=== PATIENT | male | born 1965 | race Caucasian/White ===

== ENCOUNTER 2018-03-11 15:44 | Observation (INO) ==
[2018-03-11] MEDS ORDERED: Aspirin 81 MG TAB.CHEW PO ONE (15:57)
[2018-03-11] MEDS: Nitroglycerin 25 MG/250 ML INFUS..BTL IVC SCH (16:11)
[2018-03-11 16:18] LABS: Basophils # 0.1 K/mcL (0.0-0.2); Basophils % 0.6 %; Eosinophils # 0.1 K/mcL (0.0-0.6); Eosinophils % 1.4 %; Hematocrit 46.9 % (37.5-50.1); Hemoglobin 15.8 g/dL (12.9-16.9); Immature Granulocytes % 0.3 % (0-4); Lymphocytes # 1.7 K/mcL (0.6-4.6); Lymphocytes % 16.6 %; Mean Corpuscular HGB Conc 33.7 g/dL (31.6-35.5); Mean Corpuscular Hemoglobin 29.9 pg (28.0-33.3); Mean Corpuscular Volume 88.7 fL (83.0-100.0); Mean Platelet Volume 9.7 fL (9.4-12.4); Monocytes % 9.4 %; Neutrophils # 7.4 K/mcL (1.6-8.9); Platelet Count 297 K/mcL (140-400); Red Blood Count 5.29 M/mcL (4.19-5.50); Red Cell Distribution Width 12.3 % (11.5-14.5); Segmented Neutrophils % 71.7 %
[2018-03-11 16:23] LABS: INR 1.1; Prothrombin Time 11.3 Seconds (9.4-12.1)
[2018-03-11 16:26] LABS: Activated Partial Thrombo Time 30.3 Seconds (26.0-36.0)
[2018-03-11 16:39] LABS: BUN/Creatinine Ratio 13 (6-26); Blood Urea Nitrogen 12 mg/dL (6-20); Calcium 10.2 mg/dL (8.6-10.3); Carbon Dioxide 24 mEq/L (23-29); Chloride 108 mEq/L (98-107); Glucose 91 mg/dL (70-105); Osmolality,Calculated 291 (280-300); Potassium 3.9 mEq/L (3.5-5.1); Sodium 141 mEq/L (136-145); eGFR For African Americans > 60 (> 60); eGFR For Non-African Americans > 60 (> 60)
[2018-03-11 16:40] LABS: Troponin I < 0.03 ng/mL (< 0.04)
--- NOTE | 2018-03-11 17:10 | Emergency Department Note ---
Disposition Clinical Impression: Chest pain Qualifiers: Chest pain type: unspecified Qualified Code(s): R07.9 - Chest pain, unspecified Disposition: Admitted As Inpatient Condition: Good Referrals: Adam Soler MD [Primary Care Provider] - Forms: ED Satisfaction Letter Chest Pain HPI - General Chief Complaint: ED Chest Pain Stated Complaint: chest pain Time Seen by Provider: 03/11/18 15:54 Source: patient Limitations: no limitations Vital Signs Reviewed: Yes Nursing Notes Reviewed: Yes - History of Present Illness HPI Narrative: Patient presents for evaluation of chest pain. Patient's chest pain started last night while he was at a concert. Patient states that he had associated shortness of breath and diaphoresis. Patient's chest pain today happened about an hour prior to arrival. He describes his concrete blocks on his chest. Describes shortness of breath diaphoresis nausea and radiation of pain to the right arm. States this feels like previous [place]. Patient does have a history of a five-vessel bypass. The patient states that he has not been found to have EKG changes on previous MRIs. EKG does not show any acute changes other than T- wave flattening in leads 2 and aVF. The patient is mildly diaphoretic on exam. His blood pressure is mildly elevated. The patient be given aspirin as well as placed on a low-dose nitro drip as he has a history of taking Cialis with last dose this morning. Severity scale (1-10): 0 - Related Data Home Medications Medication Instructions Recorded Confirmed Aspirin 81 mg PO DAILY 04/04/16 03/11/18 Atorvastatin Calcium [Lipitor] 80 mg PO HS 04/04/16 03/11/18 Cholecalciferol (D-3) [Vitamin D] 5,000 unit PO DAILY 04/04/16 03/11/18 Levothyroxine Sodium [Tirosint] 175 mcg PO DAILY 04/04/16 03/11/18 Metoprolol XL (24 HR) Succ [Toprol 75 mg PO DAILY 04/04/16 03/11/18 Xl] Multivitamin [Multivitamins] 1 each PO DAILY 04/04/16 03/11/18 Omeprazole [PriLOSEC] 40 mg PO BID 04/04/16 03/11/18 Vitamin E Acetate [Vitamin E] 2,000 units PO DAILY 04/04/16 03/11/18 Flaxseed Oil [[place]-3 Flaxseed Oil] 1,000 mg PO DAILY 09/12/17 03/11/18 Fluticasone Propionate Nasal 1 spray NS BID 09/12/17 03/11/18 [Flonase] Ubidecarenone [Co Q-10] 10 mg PO DAILY 09/12/17 03/11/18 Allergies Allergy/AdvReac Type Severity Reaction Status Date / Time ibuprofen [From Motrin] Allergy Swelling Verified 11/30/17 10:19 of Lip/Tongue/Throat Review of Systems: CONSTITUTIONAL: No weight loss, fever, chills, weakness or fatigue. HEENT: Eyes: No visual changes. Ears, Nose, Throat: No hearing loss, difficulty talking or unable to swallow. SKIN: No rash or itching. CARDIOVASCULAR: Chest pain with associated diaphoresis and radiation to the right arm. RESPIRATORY: No shortness of breath, cough or sputum. GASTROINTESTINAL: Nausea No anorexia, vomiting or diarrhea. No abdominal pain or blood. GENITOURINARY: No burning on urination or hematuria. NEUROLOGICAL: No headache, dizziness, syncope, paralysis, ataxia, numbness or tingling in the extremities. No change in bowel or bladder control. MUSCULOSKELETAL: No muscle pain, back pain, joint pain or stiffness. Chest Pain PMH - Past Medical History Medical history: Reports: GERD, migraine, myocardial infarction, other Surgical history: Reports: appendectomy, coronary bypass (CABG), herniorrhaphy Psychiatric history: Reports: depression - Social History Smoking Status: Former smoker Alcohol use: Reports: none Drug use: Reports: none Physical Exam General: Diaphoresis; mild distress secondary to pain Head: Normocephalic Atraumatic Eyes: PERRL, EOMI ENT: Airway patent, no stridor Neck: supple, no meningismus Chest: Lungs clear to auscultation bilateral Cardiac: Regular rate and rhythm, no murmurs, rubs or gallops Abdomen: soft, nontender, nondistended; no guarding, rebound, or tenderness to percussion Musculoskeletal: Calves symmetric, nontender, no palpable cord Skin: No rash, normal skin tone Neuro: Alert and Oriented to person, place, and time; No focal deficit, - General Limitations: no limitations General appearance: alert, in no apparent distress Course - Consultations Consultation #1: Discussed with Dr. Goodman. Due to our high concern of ACS and previous significant cardiac history, we discussed the option of starting heparin. At this time the patient does not have dynamic EKG changes and does not have a positive troponin. Heparin can be held until EKG changes or troponin elevated. Vital Signs Temperature 98.2 F 03/11/18 15:49 Pulse Rate 70 03/11/18 15:49 Respiratory Rate 18 03/11/18 15:49 Blood Pressure 152/96 03/11/18 15:49 O2 Sat by Pulse Oximetry 100 03/11/18 15:49 Temperature 98.2 F 03/11/18 15:49 Pulse Rate 70 03/11/18 17:33 Respiratory Rate 16 03/11/18 17:33 Blood Pressure 115/75 03/11/18 17:33 O2 Sat by Pulse Oximetry 100 03/11/18 17:33 Oxygen Delivery Oxygen Delivery Room Air Chest Pain - Medical Records Medical records reviewed: Yes I reviewed the patient's medical records. - Lab Data Lab results reviewed: Yes I reviewed the patient's lab results. Result diagrams: 03/11/18 15:55 03/11/18 15:55 Lab Results 03/11/18 03/11/18 03/11/18 Range/Units 15:55 15:55 15:55 WBC 10.4 (4.3-11.1) K/mcL RBC 5.29 (4.19-5.50) M/mcL Hgb 15.8 (12.9-16.9) g/dL Hct 46.9 (37.5-50.1) % MCV 88.7 (83.0-100.0) fL MCH 29.9 (28.0-33.3) pg MCHC 33.7 (31.6-35.5) g/dL RDW 12.3 (11.5-14.5) % Plt Count 297 (140-400) K/mcL MPV 9.7 (9.4-12.4) fL Immature Gran % 0.3 (0-4) % Seg Neutrophils % 71.7 % Lymphocytes % 16.6 % Monocytes % 9.4 % Eosinophils % 1.4 % Basophils % 0.6 % Neutrophils # 7.4 (1.6-8.9) K/mcL Lymphocytes # 1.7 (0.6-4.6) K/mcL Monocytes # 1.0 (0.0-1.3) K/mcL Eosinophils # 0.1 (0.0-0.6) K/mcL Basophils # 0.1 (0.0-0.2) K/mcL PT 11.3 (9.4-12.1) Seconds INR 1.1 APTT 30.3 (26.0-36.0) Seconds Sodium 141 (136-145) mEq/L Potassium 3.9 (3.5-5.1) mEq/L Chloride 108 H (98-107) mEq/L Carbon Dioxide 24 (23-29) mEq/L BUN 12 (6-20) mg/dL Creatinine 0.91 (0.70-1.30) mg/dL Est GFR ( Amer) > 60 (> 60) Est GFR (Non-Af Amer) > 60 (> 60) BUN/Creatinine Ratio 13 (6-26) Glucose 91 (70-105) mg/dL Calculated Osmolality 291 (280-300) Calcium 10.2 (8.6-10.3) mg/dL Troponin I < 0.03 (< 0.04) ng/mL - Radiology Data Radiology results reviewed: Yes I reviewed the patient's radiology results. - EKG Data EKG attestation: Yes I reviewed and interpreted this EKG. EKG results narrative: EKG shows sinus rhythm with a ventricular rate of 62. VT interval 186. QRS 98. QTC 429. Patient has no skin ST elevations or depressions. Patient does have T-wave flattening in lead 2 and aVF. These changes are different than 12/08. Attestation Statement - Attestation Attestation: I, Blair Jane DO, examined this patient [id number] and my medical decision-making was reviewed with Bacilio Chilel DO, Resident Physician. I agree with the documented findings, disposition and treatment plan as described except to the extent set forth below. Please see my progress notes for details.
--- NOTE | 2018-03-11 17:42 | Emergency Department Note ---
Disposition Clinical Impression: Chest pain Qualifiers: Chest pain type: unspecified Qualified Code(s): R07.9 - Chest pain, unspecified Disposition: Admitted As Inpatient Condition: Good Referrals: Adam Soler MD [Primary Care Provider] - Forms: ED Satisfaction Letter Time of Disposition: 17:42 General Adult HPI - General Chief complaint: ED Chest Pain Stated complaint: chest pain Time Seen by Provider: 03/11/18 15:54 Source: patient Limitations: no limitations - History of Present Illness Pain Scale: 0 - Related Data Home Medications Medication Instructions Recorded Confirmed Aspirin 81 mg PO DAILY 04/04/16 03/11/18 Atorvastatin Calcium [Lipitor] 80 mg PO HS 04/04/16 03/11/18 Cholecalciferol (D-3) [Vitamin D] 5,000 unit PO DAILY 04/04/16 03/11/18 Levothyroxine Sodium [Tirosint] 175 mcg PO DAILY 04/04/16 03/11/18 Metoprolol XL (24 HR) Succ [Toprol 75 mg PO DAILY 04/04/16 03/11/18 Xl] Multivitamin [Multivitamins] 1 each PO DAILY 04/04/16 03/11/18 Omeprazole [PriLOSEC] 40 mg PO BID 04/04/16 03/11/18 Vitamin E Acetate [Vitamin E] 2,000 units PO DAILY 04/04/16 03/11/18 Flaxseed Oil [[place]-3 Flaxseed Oil] 1,000 mg PO DAILY 09/12/17 03/11/18 Fluticasone Propionate Nasal 1 spray NS BID 09/12/17 03/11/18 [Flonase] Ubidecarenone [Co Q-10] 10 mg PO DAILY 09/12/17 03/11/18 Allergies Allergy/AdvReac Type Severity Reaction Status Date / Time ibuprofen [From Motrin] Allergy Swelling Verified 11/30/17 10:19 of Lip/Tongue/Throat Past Medical History - Past Medical History Medical history: Reports: GERD, migraine, myocardial infarction, other Surgical history: Reports: appendectomy, coronary bypass (CABG), herniorrhaphy Psychiatric history: Reports: depression - Social History Smoking Status: Former smoker Smokeless Tobacco Status: Yes Alcohol use: Reports: none Drug use: Reports: none Physical Exam - General Limitations: no limitations General appearance: alert, in no apparent distress Course Vital Signs Temperature 98.2 F 03/11/18 15:49 Pulse Rate 70 03/11/18 15:49 Respiratory Rate 18 03/11/18 15:49 Blood Pressure 152/96 03/11/18 15:49 O2 Sat by Pulse Oximetry 100 03/11/18 15:49 Temperature 98.2 F 03/11/18 15:49 Pulse Rate 70 03/11/18 17:33 Respiratory Rate 16 03/11/18 17:33 Blood Pressure 115/75 03/11/18 17:33 O2 Sat by Pulse Oximetry 100 03/11/18 17:33 Oxygen Delivery Oxygen Delivery Room Air Medical Decision Making - Lab Data Result diagrams: 03/11/18 15:55 03/11/18 15:55 Lab Results 03/11/18 03/11/18 03/11/18 Range/Units 15:55 15:55 15:55 WBC 10.4 (4.3-11.1) K/mcL RBC 5.29 (4.19-5.50) M/mcL Hgb 15.8 (12.9-16.9) g/dL Hct 46.9 (37.5-50.1) % MCV 88.7 (83.0-100.0) fL MCH 29.9 (28.0-33.3) pg MCHC 33.7 (31.6-35.5) g/dL RDW 12.3 (11.5-14.5) % Plt Count 297 (140-400) K/mcL MPV 9.7 (9.4-12.4) fL Immature Gran % 0.3 (0-4) % Seg Neutrophils % 71.7 % Lymphocytes % 16.6 % Monocytes % 9.4 % Eosinophils % 1.4 % Basophils % 0.6 % Neutrophils # 7.4 (1.6-8.9) K/mcL Lymphocytes # 1.7 (0.6-4.6) K/mcL Monocytes # 1.0 (0.0-1.3) K/mcL Eosinophils # 0.1 (0.0-0.6) K/mcL Basophils # 0.1 (0.0-0.2) K/mcL PT 11.3 (9.4-12.1) Seconds INR 1.1 APTT 30.3 (26.0-36.0) Seconds Sodium 141 (136-145) mEq/L Potassium 3.9 (3.5-5.1) mEq/L Chloride 108 H (98-107) mEq/L Carbon Dioxide 24 (23-29) mEq/L BUN 12 (6-20) mg/dL Creatinine 0.91 (0.70-1.30) mg/dL Est GFR ( Amer) > 60 (> 60) Est GFR (Non-Af Amer) > 60 (> 60) BUN/Creatinine Ratio 13 (6-26) Glucose 91 (70-105) mg/dL Calculated Osmolality 291 (280-300) Calcium 10.2 (8.6-10.3) mg/dL Troponin I < 0.03 (< 0.04) ng/mL Critical Care Time Critical Care Time: Yes Total Critical Care Time: 35 Attestation: Critical care performed: Time is exclusive of separately billable procedures. Time includes: direct patient care, patient reassessment, coordination of patient care, interpretation of data (laboratory data, radiology data, and respiratory data), review of patient's medical records, medical consultation and documentation of patient care. Procedures included in critical care time: Procedures excluded from critical care time: Attestation Statement - Attestation Attestation: I, Blair Jane DO, examined this patient [id number] and my medical decision-making was reviewed with Bacilio Chilel DO, Resident Physician. I agree with the documented findings, disposition and treatment plan as described except to the extent set forth below. Please see my progress notes for details. 52-year-old male presents emergency room a chest heaviness and tightness. Patient has a significant cardiac history with a 5 vessel bypass and 3 stents within the last 5 years. Patient said all these procedures performed at this facility. Patient had onset of symptoms last night but is persistently gotten worse today to the point where he has significant chest discomfort and pain. Patient is on Cialis and took his medication this morning. Patient denies any trauma or injury. Denies any shortness of breath fevers chills nausea vomiting or diarrhea. He does not have nitroglycerin at home and does not take any medications when he gets these symptoms. He has not had these symptoms and over 3 years. His last cardiac catheterization cardiac evaluation was greater than 3 years ago. Patient otherwise appears to be in some moderate distress on presentation. He is slightly diaphoretic he does his chest hurts on the left side. He describes as is identical to when he required catheterization stenting within the last 2 years as well. Patient immediately had an EKG which showed sinus rhythm and no acute signs of ST segment elevation or abnormality. He will be started on ACS protocol with nitroglycerin drip to be utilized secondary to the slow titration of the medication elbow symptomatic control with his blood pressure as tolerated. If his blood pressure does not tolerate patient will be provided with pain medication. Patient will most likely require admission to the hospital for definitive management. Disposition to be determined once workup labs with a CBC chemistry correlation studies as well as cardiac consultation are completed. Patient will have some plaque controlled. Disposition determined. Physical exam is otherwise unremarkable. Lungs are clear heart is regular abdomen is soft. Large surgical scar that goes from the subxiphoid region over the abdomen as well as from large sternotomy scar that appears to be stable. Lungs are clear heart is regular. Abdomen is soft nontender nondistended with no guarding no rigidity. Disposition pending the evaluation. Symptomatic control to be completed. 1625 Patient symptoms have been completely resolved with 10 g of nitroglycerin by IV infusion. Cardiology was contacted and they recommended not starting heparin drip at this time considering to repeat EKG showed no acute ST segment changes or abnormality. Vital signs are otherwise stable and unremarkable. Patient will be admitted for definitive management cardiac auscultation. See detailed documentation of the physical exam, medical intervention, medical decision-making and disposition in the resident physician's note. 35 minutes of critical care will be provided the patient secondary to multidisciplinary intervention as well as nitroglycerin drip for angina.
[2018-03-11] MEDS ORDERED: Ondansetron 4 MG/2 ML VIAL IVP PRN (18:06)
[2018-03-11] MEDS ORDERED: Mag Hydrox/Al Hydrox/Simeth 30 ML UDC PO PRN (18:06)
[2018-03-11] MEDS ORDERED: Acetaminophen 325 MG TABLET PO PRN (18:06)
[2018-03-11] MEDS ORDERED: Naloxone 0.4 MG/ML INJ IVP PRN (18:06)
--- NOTE | 2018-03-11 18:23 | Internal Med History&Physical ---
Date of Encounter: 03/11/18 Time of Encounter: 06:00 Internal Medicine - H&P: HPI Chief complaint: cp History of present illness: Mr. Rivas is a 52 year old male Patient presents for evaluation acute onset chest pain started last night while he was at a concert associated shortness of breath and diaphoresis and radiated to the right arm. He has a H/o SC and history of a five-vessel bypass. EKG does not show any acute changes other than T-wave flattening in leads 2 and aVF.leads 2 and aVF. Cardiology was consulted and he was placed on a low-dose nitro drip in the sitting of taking Cialis this morning. Past Med Surg Social Fam HX - Past Medical History Medical history: GERD, migraine, myocardial infarction, other Psychiatric history: depression - Past Surgical History Surgical History: appendectomy, coronary bypass (CABG), herniorrhaphy - Social History Smoking Status: Former smoker Smokeless Tobacco Status: Yes Alcohol use: none Drug use: none - Family History Father Living Status: Still Living Hx Family Cardiac Disorders: Yes (Triple Bipass) Internal Medicine - H&P: Meds Aspirin 81 mg PO DAILY 04/04/16 [History] Atorvastatin Calcium [Lipitor] 80 mg PO HS 04/04/16 [History] Cholecalciferol (D-3) [Vitamin D] 5,000 unit PO DAILY 04/04/16 [History] Levothyroxine Sodium [Tirosint] 175 mcg PO DAILY 04/04/16 [History] Metoprolol XL (24 HR) Succ [Toprol Xl] 75 mg PO DAILY 04/04/16 [History] Multivitamin [Multivitamins] 1 each PO DAILY 04/04/16 [History] Omeprazole [PriLOSEC] 40 mg PO BID 04/04/16 [History] Vitamin E Acetate [Vitamin E] 2,000 units PO DAILY 04/04/16 [History] Flaxseed Oil [[place]-3 Flaxseed Oil] 1,000 mg PO DAILY 09/12/17 [History] Fluticasone Propionate Nasal [Flonase] 1 spray NS BID 09/12/17 [History] Ubidecarenone [Co Q-10] 10 mg PO DAILY 09/12/17 [History] 3 Allergy/AdvReac Type Severity Reaction Status Date / Time ibuprofen [From Motrin] Allergy Swelling Verified 11/30/17 10:19 of Lip/Tongue/Throat All Systems PM: A 10-system review of systems was performed and is negative for pertinent findings except as documented above in the HPI. - Constitutional Constitutional: no chills, no fever(s), no night sweats - Cardiovascular Cardiovascular ROS IM: chest pain, no diaphoresis, no dyspnea, no lightheadedness, no palpitations, no syncope - Respiratory Respiratory: no cough, no dyspnea, no wheezing, no excessive phlegm production - Gastrointestinal Gastrointestinal: no abdominal pain, no diarrhea, no hematemesis, no hematochezia, no melena, no nausea, no vomiting - Musculoskeletal Musculoskeletal ROS IM: no numbness, no tingling - Neurological Neurological ROS: no confusion, no convulsions, no focal weakness, no numbness, no tingling, no tremor(s) - Constitutional Vitals: Temp Pulse Resp BP Pulse Ox 98.2 F 70 18 110/75 100 03/11/18 15:49 03/11/18 17:33 03/11/18 18:12 03/11/18 18:12 03/11/18 17:33 General appearance: Present: A&O X 3 - Head Head exam: Present: atraumatic, normocephalic - Respiratory Respiratory exam: Present: CTAB. Absent: accessory muscle use, rales, rhonchi, wheezes - Cardiovascular Cardiovascular exam: Present: RRR, +S1, +S2. Absent: diastolic murmur, gallop, rubs, systolic murmur - GI/Abdominal GI/Abdominal exam: Present: normal bowel sounds, soft, no peritoneal signs. Absent: distended, tenderness - Extremities Exam Extremities exam: Present: warm, radial pulses palpable and symmetrical. Absent : calf tenderness, cyanotic, pedal edema Internal Med - H&P Results - Labs CBC & Chem 7: 03/11/18 19:06 03/12/18 00:43 - Assessment and plan (1) Chest pain Status: Acute Assessment and plan: Chest pain DD *CAD *Muskuloskeletal CP - myofascial strain, costochondritis *GERD *Esophageal spasm *Cocaine induced *Pericarditis - unlikely *Pneumonia - no infiltrate on CXR PLAN: - Nitro drip as per cardiology - cardiac enzymes x 2 q 8 hr - EKG now and in AM - ASA - O2 by NC to keep SpO2 greater than 92% - UA - CBCD, BMP in AM - Fasting lipids - Tylenol 650 mg PO q 4-6 hr PRN headache - Home meds (check list) - Heparin 5000 U SQ BID - 2D Echo - Cardiology consult Qualifiers: Chest pain type: unspecified Qualified Code(s): R07.9 - Chest pain, unspecified (2) DVT prophylaxis Status: Deleted - Time Spent With Patient Total time spent is greater than 50% in coordination of care (as documented) at patient's floor/unit and/or counseling patient:
[2018-03-11 19:32] LABS: Basophils # 0.1 K/mcL (0.0-0.2); Basophils % 0.5 %; Eosinophils # 0.1 K/mcL (0.0-0.6); Eosinophils % 1.3 %; Hematocrit 42.8 % (37.5-50.1); Hemoglobin 14.9 g/dL (12.9-16.9); Immature Granulocytes % 0.4 % (0-4); Lymphocytes # 1.9 K/mcL (0.6-4.6); Lymphocytes % 17.8 %; Mean Corpuscular HGB Conc 34.8 g/dL (31.6-35.5); Mean Platelet Volume 9.8 fL (9.4-12.4); Monocytes # 0.8 K/mcL (0.0-1.3); Monocytes % 7.5 %; Neutrophils # 7.6 K/mcL (1.6-8.9); Platelet Count 282 K/mcL (140-400); Red Blood Count 4.81 M/mcL (4.19-5.50); Red Cell Distribution Width 12.3 % (11.5-14.5); Segmented Neutrophils % 72.5 %
[2018-03-11] MEDS: Fluticasone Propionate Nasal 50 MCG/SPRAY BOTTLE NS SCH (20:58)
[2018-03-11] MEDS: *HR* Heparin 5,000 UNIT/ML VIAL SQ SCH (23:16)
[2018-03-11 23:19] LABS: Bilirubin,Urine Negative (Negative); Blood,Urine Negative (Negative); Clarity,Urine Clear (Clear); Color,Urine Yellow (Yellow); Glucose,Urine (UA) Normal (Normal); Ketones,Urine Negative (Negative); Leukocyte Esterase,Urine Negative (Negative); Nitrite,Urine Negative (Negative); PH,Urine 6.5 pH Units (5.0-8.0); Protein,Urine Negative (Neg-Trace); Specific Gravity,Urine 1.011 (1.010-1.025); Urobilinogen,Urine Normal (Normal)
[2018-03-12 01:19] LABS: INR 1.1; Prothrombin Time 11.6 Seconds (9.4-12.1)
[2018-03-12 01:22] LABS: Activated Partial Thrombo Time 31.3 Seconds (26.0-36.0)
[2018-03-12 01:33] LABS: Alanine Aminotransferase 18 Units/L (7-52); Albumin 3.8 g/dL (3.5-5.7); Albumin/Globulin Ratio 1.5 (1.1-2.2); Alkaline Phosphatase 69 Units/L (34-104); Aspartate Amino Transferase 14 Units/L (13-39); BUN/Creatinine Ratio 12 (6-26); Bilirubin,Total 0.5 mg/dL (0.3-1.0); Blood Urea Nitrogen 13 mg/dL (6-20); Calcium 9.5 mg/dL (8.6-10.3); Carbon Dioxide 26 mEq/L (23-29); Chloride 111 mEq/L (98-107); Globulin 2.5 g/dL (2.4-3.5); Glucose 120 mg/dL (70-105); Magnesium 1.9 mg/dL (1.6-2.6); Osmolality,Calculated 295 (280-300); Potassium 3.3 mEq/L (3.5-5.1); Sodium 142 mEq/L (136-145); Total Protein 6.3 g/dL (6.4-8.9); Triglycerides 90 mg/dL (< 150); eGFR For African Americans > 60 (> 60); eGFR For Non-African Americans > 60 (> 60)
[2018-03-12 01:34] LABS: Chol/HDL Ratio 3.8 (0-4.9); Cholesterol 87 mg/dL (< 200); HDL Cholesterol 23 mg/dL (40-59); LDL Cholesterol,Calculated 46 mg/dL (0-99)
[2018-03-12] MEDS ORDERED: Cholecalciferol (D-3) 1,000 UNIT TABLET PO SCH (09:00)
[2018-03-12] MEDS ORDERED: VITAMIN E ACETATE PO SCH (09:00)
[2018-03-12] MEDS ORDERED: Multivit/Ca/Min/Fe/FA 1 TAB TABLET PO SCH (09:00)
[2018-03-12] MEDS ORDERED: Aspirin 81 MG TAB.CHEW PO SCH (09:00)
[2018-03-12] MEDS ORDERED: (Flaxseed Oil [Omega-3 Flaxseed Oil] 1,000 MG) PO SCH (09:00)
[2018-03-12] MEDS ORDERED: Metoprolol XL (24 HR) Succ 50 MG TAB.ER.24H PO SCH (09:00)
[2018-03-12] MEDS ORDERED: Regadenoson 0.4 MG/5 ML SYRINGE IVP ONE ×2 (11:02→11:21)
[2018-03-12] MEDS: *HR* Heparin 5,000 UNIT/ML VIAL SQ SCH ×2 (12:35→16:13)
[2018-03-12] MEDS: Fluticasone Propionate Nasal 50 MCG/SPRAY BOTTLE NS SCH (12:36)
[2018-03-12 12:38] VITALS: BP 122/79
--- NOTE | 2018-03-12 14:00 | Electrocardiograph Report ---
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
--- NOTE | 2018-03-12 14:05 | Electrocardiograph Report ---
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
--- NOTE | 2018-03-12 15:37 | Discharge Summary ---
Orders not resulted at time of discharge: Pending orders 03/12/18 08:18 NM raj perf SPECT multi [NM] Routine Date of Encounter: 03/12/18 Time of Encounter: 15:35 - Discharge Diagnosis (1) Chest pain Priority: Primary Status: Acute Assessment and Plan: known hx CAD (hx CABG X4). Presented with chest pain with near syncopal event on day of arrival. Serial troponins negative, EKG without acute ST changes. Chart reviewed and 03/2016 [facility] with patent grafts. 03/12/18 TTE with EF 60%, mild diastolic dysfunction, no wall motion abnormalities. 03/12/18 stress test negative for ischemia or infarct. Chest pain resolved at time of discharge. Continue home ASA, statin, BB. Advised to return to ER if chest pain recurs. Recommend outpatient follow-up with primary speed belt sander. Qualifiers: Chest pain type: unspecified Qualified Code(s): R07.9 - Chest pain, unspecified (2) Near syncope Priority: Primary Status: Acute Assessment and Plan: reported an episode of feeling lightheaded/dizzy on day of arrival while at a concert. No loss of consciousness. TTE with EF 60% as noted above. No evidence of orthostasis. Suspect secondary to dehydration/over stimulation ascertain occurred at a crowded concert. No symptom recurrence. (3) Hypothyroidism Priority: Secondary Status: Acute Assessment and Plan: per hx. Cont home levothyroxine Qualifiers: Hypothyroidism type: acquired Qualified Code(s): E03.9 - Hypothyroidism, unspecified Hospital course: Please see assessment and plan for Hospital course Discharge discussed with: patient (Seen and examined at bedside. Patient is new to me, information obtained from chart review and patient report. Says he feels better now like to go home if possible. No further chest pain/ discomfort. No near syncopal events. He was advised to return to ER if chest pain/SOB recurs. Verbalized understanding.) - Time Spent with Patient Total time spent providing and/or coordinating discharge services: - Discharge Medications Home Medications: Aspirin 81 mg PO DAILY 04/04/16 [History] Atorvastatin Calcium [Lipitor] 80 mg PO HS 04/04/16 [History] Cholecalciferol (D-3) [Vitamin D] 5,000 unit PO DAILY 04/04/16 [History] Levothyroxine Sodium [Tirosint] 175 mcg PO DAILY 04/04/16 [History] Metoprolol XL (24 HR) Succ [Toprol Xl] 75 mg PO DAILY 04/04/16 [History] Multivitamin [Multivitamins] 1 each PO DAILY 04/04/16 [History] Omeprazole [PriLOSEC] 40 mg PO BID 04/04/16 [History] Vitamin E Acetate [Vitamin E] 2,000 units PO DAILY 04/04/16 [History] Flaxseed Oil [[place]-3 Flaxseed Oil] 1,000 mg PO DAILY 09/12/17 [History] Fluticasone Propionate Nasal [Flonase] 1 spray NS BID 09/12/17 [History] Ubidecarenone [Co Q-10] 10 mg PO DAILY 09/12/17 [History] Allergies/Adverse Reactions: 3 Allergy/AdvReac Type Severity Reaction Status Date / Time ibuprofen [From Motrin] Allergy Swelling Verified 11/30/17 10:19 of Lip/Tongue/Throat Date of admission: 03/11/18 18:06 Primary care physician: Katarzyna Stern Consults: 03/11/18 19:08 Consult to Portrait Consultant [CONS] Routine Reason for SW Consult: Patient has finacial concerns. Discharging clinician: Love Pritchett Anticipated date of discharge: 03/12/18 - Constitutional Vitals: Temp Pulse Resp BP Pulse Ox 98 F 62 16 122/79 97 03/12/18 07:05 03/12/18 12:37 03/12/18 07:05 03/12/18 12:37 03/12/18 07:05 General appearance: Present: A&O X 3 - Head Head exam: Present: atraumatic, normocephalic - Eye Eye exam: Present: PERRL, conjuntiva pink, sclera anicteric Pupils: Present: PERRL - Neck Neck exam general surgery: Present: supple, trachea midline. Absent: lymphadenopathy - Respiratory Respiratory exam: Present: CTAB. Absent: accessory muscle use, rales, rhonchi, wheezes - Cardiovascular Cardiovascular exam: Present: RRR, +S1, +S2. Absent: diastolic murmur, gallop, rubs, systolic murmur - GI/Abdominal GI/Abdominal exam: Present: normal bowel sounds, soft, no peritoneal signs. Absent: distended, tenderness - Extremities Exam Extremities exam: Present: warm, radial pulses palpable and symmetrical. Absent : calf tenderness, cyanotic, pedal edema - Neurological Exam Neurological exam: Present: CN II-XII intact, oriented X3, no focal deficits. Absent: pronater drift, facial droop, speech deficit - Skin Skin exam: Present: dry, intact - Patient Status Disposition: Home, Self-Care Condition: Good Functional capacity at discharge: independent ambulation Overall status at discharge: patient is back to baseline - Discharge Instructions Instructions: Coronary Artery Disease (DC), Chest Pain (DC) Follow Up With: Katarzyna Stern MD [Primary Care Provider] - 03/20/18 10:45 am Stas Dobbs MD [Partnered Physician] - (Please call for follow-up appt within 2-3 weeks) - Diet and Activity Activity: increase activity as tolerated Diet: low fat, low cholesterol
[2018-03-12] MEDS: Nitroglycerin 25 MG/250 ML INFUS..BTL IVC SCH (16:13)
== END 2018-03-12 16:59 | disposition home or self-care (01) ==
LOC: EMEROO 15:44 → 3BNU 15:44
PROVIDERS: ADMIT Internal Medicine Nephrology; ATTEND Internal Medicine Nephrology

== ENCOUNTER 2018-11-29 17:21 | Observation (INO) ==
--- NOTE | 2018-11-29 17:33 | Emergency Department Note ---
Disposition Clinical Impression: Chest pain Qualifiers: Chest pain type: unspecified Qualified Code(s): R07.9 - Chest pain, unspecified Disposition: Admitted As Inpatient Referrals: Katarzyna Stern MD [Primary Care Provider] - Forms: ED Satisfaction Letter Time of Disposition: 18:48 General Adult HPI - General Chief complaint: ED Chest Pain Stated complaint: Chest Tightness, NORRIS Time Seen by Provider: 11/29/18 17:29 Source: patient, family Limitations: no limitations - History of Present Illness Pain Scale: 4 - Related Data Home Medications Medication Instructions Recorded Confirmed Aspirin 81 mg PO DAILY 04/04/16 03/11/18 Atorvastatin Calcium [Lipitor] 80 mg PO HS 04/04/16 03/11/18 Cholecalciferol (D-3) [Vitamin D] 5,000 unit PO DAILY 04/04/16 03/11/18 Levothyroxine Sodium [Tirosint] 175 mcg PO DAILY 04/04/16 03/11/18 Metoprolol XL (24 HR) Succ [Toprol 75 mg PO DAILY 04/04/16 03/11/18 Xl] Multivitamin [Multivitamins] 1 each PO DAILY 04/04/16 03/11/18 Omeprazole [PriLOSEC] 40 mg PO BID 04/04/16 03/11/18 Vitamin E Acetate [Vitamin E] 2,000 units PO DAILY 04/04/16 03/11/18 Flaxseed Oil [[place]-3 Flaxseed Oil] 1,000 mg PO DAILY 09/12/17 03/11/18 Fluticasone Propionate Nasal 1 spray NS BID 09/12/17 03/11/18 [Flonase] Ubidecarenone [Co Q-10] 10 mg PO DAILY 09/12/17 03/11/18 Allergies Allergy/AdvReac Type Severity Reaction Status Date / Time ibuprofen [From Motrin] Allergy Swelling Verified 11/30/17 10:19 of Lip/Tongue/Throat Past Medical History - Past Medical History Medical history: Reports: GERD, migraine, myocardial infarction, other Surgical history: Reports: appendectomy, coronary bypass (CABG), herniorrhaphy Psychiatric history: Reports: no psych history, depression - Social History Smoking Status: Former smoker Smokeless Tobacco Status: Yes Alcohol use: Reports: none Drug use: Reports: none Physical Exam - General Limitations: no limitations General appearance: alert, in no apparent distress Course Vital Signs Temperature 98.0 F 11/29/18 17:23 Pulse Rate 70 11/29/18 17:23 Respiratory Rate 16 11/29/18 17:23 Blood Pressure 147/54 11/29/18 17:23 O2 Sat by Pulse Oximetry 98 11/29/18 17:23 Temperature 98.0 F 11/29/18 17:23 Pulse Rate 73 11/29/18 18:07 Respiratory Rate 20 11/29/18 18:07 Blood Pressure 90/56 11/29/18 18:07 O2 Sat by Pulse Oximetry 100 11/29/18 18:07 Oxygen Delivery Oxygen Delivery Room Air Medical Decision Making - Lab Data Result diagrams: 11/29/18 17:38 11/29/18 17:38 Lab Results 11/29/18 11/29/18 Range/Units 17:38 17:38 WBC 9.0 (4.3-11.1) K/mcL RBC 4.78 (4.19-5.50) M/mcL Hgb 14.3 (12.9-16.9) g/dL Hct 41.8 (37.5-50.1) % MCV 87.4 (83.0-100.0) fL MCH 29.9 (28.0-33.3) pg MCHC 34.2 (31.6-35.5) g/dL RDW 12.0 (11.5-14.5) % Plt Count 262 (140-400) K/mcL MPV 9.7 (9.4-12.4) fL Immature Gran % 0.4 (0-4) % Seg Neutrophils % 70.1 % Lymphocytes % 19.0 % Monocytes % 8.6 % Eosinophils % 1.1 % Basophils % 0.8 % Neutrophils # 6.3 (1.6-8.9) K/mcL Lymphocytes # 1.7 (0.6-4.6) K/mcL Monocytes # 0.8 (0.0-1.3) K/mcL Eosinophils # 0.1 (0.0-0.6) K/mcL Basophils # 0.1 (0.0-0.2) K/mcL Sodium 136 (136-145) mEq/L Potassium 4.0 (3.5-5.1) mEq/L Chloride 105 (98-107) mEq/L Carbon Dioxide 24 (23-29) mEq/L BUN 18 (6-20) mg/dL Creatinine 0.90 (0.70-1.30) mg/dL Est GFR ( Amer) > 60 (> 60) Est GFR (Non-Af Amer) > 60 (> 60) BUN/Creatinine Ratio 20 (6-26) Glucose 101 (70-105) mg/dL Calculated Osmolality 284 (280-300) Calcium 9.6 (8.6-10.3) mg/dL Total Bilirubin 0.6 (0.3-1.0) mg/dL AST 15 (13-39) Units/L ALT 16 (7-52) Units/L Alkaline Phosphatase 78 (34-104) Units/L Troponin I < 0.03 (< 0.04) ng/mL Serum Total Protein 7.0 (6.4-8.9) g/dL Albumin 4.2 (3.5-5.7) g/dL Globulin 2.8 (2.4-3.5) g/dL Albumin/Globulin Ratio 1.5 (1.1-2.2) Attestation Statement - Attestation Attestation: I examined this patient and my medical decision-making was reviewed with the Re sident Physician. I agree with the documented findings, disposition and treatment plan as described except to the extent set forth below. [id number] time provided Patient arrives complaining of chest discomfort persistently over the past several days. He has a history of five-vessel CABG. He appears in no acute distress on exam. ECG reviewed by me 18:44: Care endorsed to the oncoming physician Dr. Barfield pending admission.
--- NOTE | 2018-11-29 17:41 | Emergency Department Note ---
Disposition Clinical Impression: Chest pain Qualifiers: Chest pain type: unspecified Qualified Code(s): R07.9 - Chest pain, unspecified Disposition: Still a Patient Forms: ED Satisfaction Letter General Adult HPI - General Chief complaint: ED Chest Pain Stated complaint: Chest Tightness, NORRIS Time Seen by Provider: 11/29/18 17:29 Source: patient, family Limitations: no limitations Nursing Notes Reviewed: Yes Vital Signs Reviewed: Yes - History of Present Illness HPI Narrative: Patient is a 53-year-old male past history of CABG 5 years ago 5 vessels. He presents with 2-3 days of chest tightness. Patient states her the past 3 days he has had constant chest tightness. Does not feel like chest pressure which he felt before he had heart attack in the past. Start some left-sided chest radiates to the right. No radiation to his jaw no radiation down left arm. Patient states he has mild shortness of breath. Patient also had a cough for the past 2 days. Patient states he has felt this tightness before but does not last very long. Pain is worse with inspiration. Nothing makes it better. She was also diaphoretic. No fevers, no chills, no lower extremity swelling, pare sis pain in spite of the swelling. Patient has been nauseous but has not had any vomiting, diarrhea. Pain Scale: 4 - Related Data Home Medications Medication Instructions Recorded Confirmed Aspirin 81 mg PO DAILY 04/04/16 03/11/18 Atorvastatin Calcium [Lipitor] 80 mg PO HS 04/04/16 03/11/18 Cholecalciferol (D-3) [Vitamin D] 5,000 unit PO DAILY 04/04/16 03/11/18 Levothyroxine Sodium [Tirosint] 175 mcg PO DAILY 04/04/16 03/11/18 Metoprolol XL (24 HR) Succ [Toprol 75 mg PO DAILY 04/04/16 03/11/18 Xl] Multivitamin [Multivitamins] 1 each PO DAILY 04/04/16 03/11/18 Omeprazole [PriLOSEC] 40 mg PO BID 04/04/16 03/11/18 Vitamin E Acetate [Vitamin E] 2,000 units PO DAILY 04/04/16 03/11/18 Flaxseed Oil [[place]-3 Flaxseed Oil] 1,000 mg PO DAILY 09/12/17 03/11/18 Fluticasone Propionate Nasal 1 spray NS BID 09/12/17 03/11/18 [Flonase] Ubidecarenone [Co Q-10] 10 mg PO DAILY 09/12/17 03/11/18 Allergies Allergy/AdvReac Type Severity Reaction Status Date / Time ibuprofen [From Motrin] Allergy Swelling Verified 11/30/17 10:19 of Lip/Tongue/Throat Constitutional: Reports: as per HPI Eyes: Denies: vision change ENT ED: Denies: congestion Cardiovascular: Reports: as per HPI Respiratory: Reports: as per HPI Gastrointestinal: Reports: as per HPI Genitourinary: Denies: urgency, dysuria Musculoskeletal: Denies: myalgia Integumentary: Denies: rash Neurological: Reports: headache Endocrine: Denies: fatigue Allergic/Immunologic: Denies: urticaria Past Medical History - Past Medical History Medical history: Reports: GERD, migraine, myocardial infarction, other Surgical history: Reports: appendectomy, coronary bypass (CABG), herniorrhaphy Psychiatric history: Reports: no psych history, depression - Social History Smoking Status: Former smoker Smokeless Tobacco Status: Yes Alcohol use: Reports: none Drug use: Reports: none Physical Exam Patient sitting up in bed. Pleasant and conversational. - General Limitations: no limitations General appearance: alert, in no apparent distress - Head Head exam: atraumatic, normocephalic - Eye Eye exam: Present: normal appearance, PERRL, EOMI - ENT ENT exam: normal exam, normal oropharynx, mucous membranes moist - Chest Chest inspection: Present: normal inspection, symmetric chest wall rise - Respiratory Respiratory exam: Present: normal lung sounds bilaterally. Absent: respiratory distress, wheezes - Cardiovascular Cardiovascular exam: Present: regular rate, normal rhythm, normal heart sounds, +S1, +S2. Absent: systolic murmur, diastolic murmur - Abdominal Exam Abdominal exam: Present: soft, Non-Tender. Absent: tenderness, distention, guarding, rebound, rigidity - Neurological Exam Neurological exam: Present: alert, oriented X3 - Psychiatric Psychiatric exam: Present: normal affect, normal mood - Skin Skin exam: Present: warm, dry, intact, normal color Course Vital Signs Temperature 98.0 F 11/29/18 17:23 Pulse Rate 70 11/29/18 17:23 Respiratory Rate 16 11/29/18 17:23 Blood Pressure 147/54 11/29/18 17:23 O2 Sat by Pulse Oximetry 98 11/29/18 17:23 Temperature 98.0 F 11/29/18 17:23 Pulse Rate 70 11/29/18 17:23 Respiratory Rate 16 11/29/18 17:23 Blood Pressure 147/54 11/29/18 17:23 O2 Sat by Pulse Oximetry 98 11/29/18 17:23 Oxygen Delivery Oxygen Delivery Room Air Medical Decision Making - MDM Narrative Medical decision making narrative: Patient has a concerning story and significant CAD in the past. Due to his past CABG. Concern for ACS. EKG found normal sinus rhythm. [place] is normal ventricular rate 70 bpm. QRS 96 QTQTC 395/[address] segment changes noted. Troponins basic labs were ordered. Chest x-ray ordered. CBC resulted. Within normal limits, with a metabolic panel and troponins are still pending. sign out to the night team. Will update patient that he will likely be admitted. - Medical Records Medical records reviewed: Yes I reviewed the patient's medical records. - Lab Data Lab results reviewed: Yes I reviewed the patient's lab results.
[2018-11-29 18:03] LABS: Basophils # 0.1 K/mcL (0.0-0.2); Basophils % 0.8 %; Eosinophils # 0.1 K/mcL (0.0-0.6); Eosinophils % 1.1 %; Hematocrit 41.8 % (37.5-50.1); Hemoglobin 14.3 g/dL (12.9-16.9); Immature Granulocytes % 0.4 % (0-4); Lymphocytes # 1.7 K/mcL (0.6-4.6); Mean Corpuscular HGB Conc 34.2 g/dL (31.6-35.5); Mean Corpuscular Hemoglobin 29.9 pg (28.0-33.3); Mean Corpuscular Volume 87.4 fL (83.0-100.0); Mean Platelet Volume 9.7 fL (9.4-12.4); Monocytes # 0.8 K/mcL (0.0-1.3); Monocytes % 8.6 %; Neutrophils # 6.3 K/mcL (1.6-8.9); Platelet Count 262 K/mcL (140-400); Red Blood Count 4.78 M/mcL (4.19-5.50); Segmented Neutrophils % 70.1 %
[2018-11-29] MEDS ORDERED: 0.9 % Sodium Chloride 1,000 ML ONE (18:05)
[2018-11-29 18:25] LABS: Alanine Aminotransferase 16 Units/L (7-52); Albumin 4.2 g/dL (3.5-5.7); Albumin/Globulin Ratio 1.5 (1.1-2.2); Alkaline Phosphatase 78 Units/L (34-104); Aspartate Amino Transferase 15 Units/L (13-39); BUN/Creatinine Ratio 20 (6-26); Bilirubin,Total 0.6 mg/dL (0.3-1.0); Blood Urea Nitrogen 18 mg/dL (6-20); Calcium 9.6 mg/dL (8.6-10.3); Carbon Dioxide 24 mEq/L (23-29); Chloride 105 mEq/L (98-107); Globulin 2.8 g/dL (2.4-3.5); Glucose 101 mg/dL (70-105); Osmolality,Calculated 284 (280-300); Sodium 136 mEq/L (136-145); Troponin I < 0.03 ng/mL (< 0.04); eGFR For Non-African Americans > 60 (> 60)
[2018-11-29] MEDS ORDERED: Naloxone 0.4 MG/ML INJ IVP PRN (23:17)
--- NOTE | 2018-11-29 23:22 | Internal Med History&Physical ---
Date of Encounter: 11/29/18 Time of Encounter: 22:30 Internal Medicine - H&P: HPI Chief complaint: Chest pain Admitted From: Emergency Dept Plans for Post Hospital Care: Home History of present illness: Mr. Rivas is a 53 year old male patient presented to the emergency room with a 2 to three-day history of chest tightness. He has a history of 5 vessel CABG about 5 years ago. He says that the chest tightness comes and goes and is felt to more with exertion. He was out walking his dog during one of the episodes and upon arriving home, he laid down and the pain improved. He has some radiation to his left shoulder and then sometimes to his right shoulder. The pain is increased in intensity, and the patient's convinced him to come to the hospital for further evaluation. His most recent episode was different than his previous episodes and he describes it more of a squeezing sensation instead of a heaviness. In the emergency room patient's vital signs were within normal limits, CBC and CMP were both within normal limits. Patient's initial troponin was undetectable. Chest x-ray showed no acute findings. An EKG performed showed normal sinus rhythm with no ST segment changes. Patient's chest pain had resolved upon arrival. Due to his significant history of cardiac bypass grafts, patient was admitted to the hospital for further management. Upon my evaluation, patient is sitting comfortably in the hospital bed. He denies chest pain, abdominal pain, nausea, vomiting, diarrhea and constipation. He denies shortness of breath, but over the last few days he has had mild shortness of breath as well as nausea. He has significant family history of heart attacks, congestive heart failure, diabetes and hypertension on both sides of his family. Since his last heart attack and subsequent bypass, patient states that he has quit smoking but still chews tobacco. He tries to eat healthy, stays active and watches what he eats. 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 Past Med Surg Social Fam HX - Past Medical History Medical history: GERD, migraine, myocardial infarction, other Additional medical history: CAD, HYPOTHYROIDISM, BARETTS ESOPH, OA, PNEUMONIA, HEAD INJURY, INSOMNIA, SEASONAL ALLERGIES Psychiatric history: no psych history, depression - Past Surgical History Surgical History: appendectomy, coronary bypass (CABG), herniorrhaphy Additional surgical history: T&A, QUINN, HAND SX, INSICIONAL HERNIA, EGD, GASTRITIS, COLONOSCOPY, CABG (5), STENTS (3) - Social History Smoking Status: Former smoker Smokeless Tobacco Status: Yes Alcohol use: none Drug use: none - Family History Father Living Status: Still Living Hx Family Cardiac Disorders: Yes (Triple Bipass) Internal Medicine - H&P: Meds Aspirin 81 mg PO DAILY 04/04/16 [History] Atorvastatin Calcium [Lipitor] 80 mg PO HS 04/04/16 [History] Cholecalciferol (D-3) [Vitamin D] 5,000 unit PO DAILY 04/04/16 [History] Levothyroxine Sodium [Tirosint] 175 mcg PO DAILY 04/04/16 [History] Metoprolol XL (24 HR) Succ [Toprol Xl] 75 mg PO DAILY 04/04/16 [History] Multivitamin [Multivitamins] 1 each PO DAILY 04/04/16 [History] Omeprazole [PriLOSEC] 40 mg PO BID 04/04/16 [History] Vitamin E Acetate [Vitamin E] 2,000 units PO DAILY 04/04/16 [History] Flaxseed Oil [[place]-3 Flaxseed Oil] 1,000 mg PO DAILY 09/12/17 [History] Fluticasone Propionate Nasal [Flonase] 1 spray NS BID 09/12/17 [History] Ubidecarenone [Co Q-10] 10 mg PO DAILY 09/12/17 [History] Allergy/AdvReac Type Severity Reaction Status Date / Time ibuprofen [From Motrin] Allergy Swelling Verified 11/30/17 10:19 of Lip/Tongue/Throat All Systems PM: A 10-system review of systems was performed and is negative for pertinent findi ngs except as documented above in the HPI. - Constitutional Vitals: Temp Pulse Resp BP Pulse Ox 98.0 F 70 16 130/85 99 11/29/18 17:23 11/29/18 22:06 11/29/18 22:06 11/29/18 22:06 11/29/18 22:06 General appearance: Present: cooperative, A&O X 3, pleasant, no acute distress, answers questions appropriately Exam: - - Head Head exam: Present: normal inspection - Eye Eye exam: Present: EOMI, normal appearance - Respiratory Respiratory exam: Present: CTAB. Absent: chest wall tenderness, decreased breath sounds, rales, respiratory distress, rhonchi, wheezes - Cardiovascular Cardiovascular exam: Present: RRR. Absent: diastolic murmur, systolic murmur - GI/Abdominal GI/Abdominal exam: Present: normal bowel sounds, soft. Absent: tenderness - Extremities Exam Extremities exam: Present: warm, radial pulses palpable and symmetrical. Absent: calf tenderness, pedal edema, tenderness - Neurological Exam Neurological exam: Present: no focal deficits, strengths equal and symetr throughout. Absent: motor sensory deficit, facial droop, speech deficit - Skin Skin exam: Present: dry, normal color, warm Internal Med - H&P Results - Labs CBC & Chem 7: 11/29/18 17:38 11/29/18 17:38 Labs: Short CBC 11/29/18 Range/Units 17:38 WBC 9.0 (4.3-11.1) K/mcL Hgb 14.3 (12.9-16.9) g/dL Hct 41.8 (37.5-50.1) % Plt Count 262 (140-400) K/mcL Neutrophils # 6.3 (1.6-8.9) K/mcL BMP 11/29/18 17:38 Sodium 136 Potassium 4.0 Chloride 105 Carbon Dioxide 24 BUN 18 Creatinine 0.90 Glucose 101 Calcium 9.6 Cardiac Enzymes 11/29/18 Range/Units 17:38 Troponin I < 0.03 (< 0.04) ng/mL Liver Function 11/29/18 Range/Units 17:38 Total Bilirubin 0.6 (0.3-1.0) mg/dL AST 15 (13-39) Units/L ALT 16 (7-52) Units/L Alkaline Phosphatase 78 (34-104) Units/L Albumin 4.2 (3.5-5.7) g/dL - Impressions ITS Impressions Chest X-Ray 11/29/18 17:31 IMPRESSION: No acute findings D/ / Angelita Spear MD / Angelita Spear MD Interpreting Provider: Angelita Spear MD - Assessment and plan (1) Chest pain Current Visit: Yes Status: Acute Assessment and plan: Now resolved. Patient had recent workup with echocardiogram and stress test on March 12 of last year. He had been admitted at that time for chest pain echocardiogram at that time showed left ventricular ejection fraction of 60%, moderate left ventricular diastolic dysfunction, normal right ventricular structure and function and mild tricuspid regurg. There was no pulmonary hypertension. Patient's nuclear stress test was negative for ischemia or infarct with a gated EF of 68%. Continue to trend troponins ekg monitor tech Cardiology consult in the morning Qualifiers: Chest pain type: unspecified Qualified Code(s): R07.9 - Chest pain, u nspecified (2) History of heart bypass surgery Current Visit: Yes Status: Acute Assessment and plan: Patient follows with a work car operator regularly. He says that one of his bypasses has clotted off, but the other 4 are still functional. Continue to monitor Cardiology consult in the morning (3) Nausea Current Visit: Yes Status: Acute Assessment and plan: Now resolved When necessary Zofran as needed (4) Current nicotine use Current Visit: Yes Status: Acute Assessment and plan: Patient chews tobacco Declines nicotine patch (5) DVT prophylaxis Current Visit: Yes Status: Acute Assessment and plan: Subcutaneous heparin - Time Spent With Patient Total time spent is greater than 50% in coordination of care (as documented) at patient's floor/unit and/or counseling patient: Greater than 35 minutes
[2018-11-29] MEDS ORDERED: Ondansetron 4 MG/2 ML VIAL IVP PRN (23:34)
[2018-11-30] MEDS ORDERED: *HR* Heparin 5,000 UNIT/ML VIAL SQ SCH (06:00)
[2018-11-30 06:34] LABS: Hematocrit 41.5 % (37.5-50.1); Hemoglobin 14.1 g/dL (12.9-16.9); Mean Corpuscular Volume 88.3 fL (83.0-100.0); Platelet Count 245 K/mcL (140-400)
[2018-11-30 06:48] LABS: BUN/Creatinine Ratio 19 (6-26); Blood Urea Nitrogen 15 mg/dL (6-20); Calcium 9.4 mg/dL (8.6-10.3); Carbon Dioxide 25 mEq/L (23-29); Chloride 109 mEq/L (98-107); Glucose 87 mg/dL (70-105); Osmolality,Calculated 290 (280-300); Potassium 3.7 mEq/L (3.5-5.1); Sodium 140 mEq/L (136-145); eGFR For Non-African Americans > 60 (> 60)
--- NOTE | 2018-11-30 09:38 | Cardiology Consult Note ---
<Franki Navarrete R - Last Filed: 11/30/18 09:38> Date of Encounter: 11/30/18 Time of Encounter: 09:33 Assessment and Plan (1) Chest pain Current Visit: Yes Status: Acute 3 day hx of chest tightness, initially intermittent, left sided, then progressed to constant between his shoulders. Associated dyspnea, dizziness, nausea. Occurs with both rest and exertion. Different than his previous anginal equivalent. CP resolved upon arrival without recurrence. Troponins negative x 3. TTE 02/2018: LVEF 60%. Moderate LVDD. Normal RV structure and function. Mild TR. No phtn. Nuclear stress test 02/2018: Gated EF 68%. Perfusion imaging negative for ischemia or infarct. [facility] 04/04/16: Severe 3V CAD. EF 65%. S/P CABG 4 of 4 patent bypass grafts. ECG lead limbs appear reversed. Will repeat ECG. Repeat TTE. Add Imdur 30mg daily. Outpt follow-up with [facility] experiential therapist. Anticipate sign off if no significant changes on TTE. Will discuss and review with Dr. Franklyn Goodman. Qualifiers: Chest pain type: unspecified Qualified Code(s): R07.9 - Chest pain, unspecified (2) CAD (coronary artery disease) Current Visit: Yes Status: Acute Hx CABG. [facility] 01/24 patent grafts. ASA, Statin, BB. Will decrease BB given dizziness. Qualifiers: Coronary Disease-Associated Artery/Lesion type: [place] artery [place] vs. transplanted heart: [place] heart Associated angina: angina presence unspecified Qualified Code(s): I25.10 - Atherosclerotic heart disease of [place] coronary artery without angina pectoris Discussion w patient/family: The assessment and plan as outlined above was discussed with the patient and/or family members who expressed understanding and agreement. All questions were answered. Thank you for involving us in the care of your patient. Please call with any questions. I will discuss all the above with Dr. Franklyn Goodman and make changes as necessary. History of Present Illness Consult date: 11/30/18 Consult reason: chest pain Chief complaint: chest pain History of present illness: Mr. Rivas is a 53 year old male with PMH of CAD s/p CABG presented to ED with a 3 day hx of chest tightness. Pain was initially intermittent, left sided, then progressed to constant between his shoulders. Associated dyspnea, dizziness, nausea. Occurs with both rest and exertion. Different than his previous anginal equivalent. Chest pain had resolved upon arrival without recurrence. Troponins negative x 3. Cardiology consulted for further recs. Follows with [facility] card iology. Prior CV testing: TTE 02/2018: LVEF 60%. Moderate LVDD. Normal RV structure and function. Mild TR. No phtn. Nuclear stress test 02/2018: Gated EF 68%. Perfusion imaging negative for ischemia or infarct. [facility] 04/04/16: There is severe 3V CAD. EF 65%. S/P CABG 4 of 4 patent bypass grafts. Past Med Surg Social Fam HX - Past Medical History Medical history: coronary artery disease, GERD, migraine, other Additional medical history: CAD, HYPOTHYROIDISM, BARETTS ESOPH, OA, HEAD INJURY, INSOMNIA, SEASONAL ALLERGIES Psychiatric history: no psych history, depression - Past Surgical History Surgical History: appendectomy, coronary bypass (CABG), herniorrhaphy Additional surgical history: T&A, QUINN, HAND SX, INSICIONAL HERNIA, EGD, GASTRITIS, COLONOSCOPY, CABG (5), STENTS (3) - Social History Smoking Status: Former smoker Smokeless Tobacco Status: Yes Alcohol use: none Drug use: none - Family History Father Living Status: Still Living Hx Family Cardiac Disorders: Yes (Triple Bipass) Medications and Allergies RX: Aspirin 81 mg PO DAILY 04/04/16 [History] RX: Atorvastatin Calcium [Lipitor] 80 mg PO HS 04/04/16 [History] RX: Cholecalciferol (D-3) [Vitamin D] 5,000 unit PO DAILY 04/04/16 [History] RX: Levothyroxine Sodium [Tirosint] 175 mcg PO DAILY 04/04/16 [History] RX: Metoprolol XL (24 HR) Succ [Toprol Xl] 50 mg PO BID 04/04/16 [History] RX: Multivitamin [Multivitamins] 1 each PO DAILY 04/04/16 [History] RX: Omeprazole [PriLOSEC] 40 mg PO BID 04/04/16 [History] RX: Vitamin E Acetate [Vitamin E] 2,000 units PO DAILY 04/04/16 [History] RX: Flaxseed Oil [[place]-3 Flaxseed Oil] 1,000 mg PO DAILY 09/12/17 [History] RX: Fluticasone Propionate Nasal [Flonase] 1 spray NS BID 09/12/17 [History] RX: Ubidecarenone [Co Q-10] 10 mg PO DAILY 09/12/17 [History] Allergy/AdvReac Type Severity Reaction Status Date / Time ibuprofen [From Motrin] Allergy Swelling Verified 11/30/17 10:19 of Lip/Tongue/Throat All Systems Review: The remainder of the systems were reviewed and are negative - Cardiovascular Cardiovascular: as per HPI, chest pain at rest, chest pain with exertion, dyspnea at rest, dyspnea on exertion - Respiratory Respiratory: dyspnea - Gastrointestinal Gastrointestinal: nausea - Neurological Neurological: dizziness Physical Examination Vital Signs, Last 4 Hours Temp Pulse Resp BP Pulse Ox 11/30/18 07:53 98.2 F 68 17 115/74 93 Vital Signs Temp Pulse Resp BP Pulse Ox 11/30/18 07:53 98.2 F 68 17 115/74 93 11/30/18 05:04 97.9 F 67 14 109/70 97 11/29/18 23:06 98.3 F 65 16 137/84 99 11/29/18 22:06 70 16 130/85 99 11/29/18 20:23 65 18 134/93 100 11/29/18 19:30 69 125/85 100 11/29/18 18:07 73 20 90/56 100 11/29/18 17:23 98.0 F 70 16 147/54 98 Intake and Output 11/29/18 11/30/18 11/30/18 23:59 07:59 15:59 Intake Total 1000 / 1000 0 / 0 Output Total 100 / 100 Balance 1000 / 1000 -100 / -100 Intake: IV Fluids 1000 / 1000 0.9 % Sodium Chloride 1,000 ML 1000 / 1000 @ 0 mls/hr .ROUTE .STK-MED ONE Rx#:[id number] Oral 0 / 0 0 / 0 Output: Urine 100 / 100 Other: # Voids 0 1 Weight 88.5 kg General: Conversant, No Apparent Distress HEENT: Atraumatic, Normocephaly, Mucus Membranes Moist Neck: No JVD, Normal carotid pulses Cardiac: Reg Rate and Rhythm, Normal S1 and S2, No Murmur Lungs: Normal Breath Sounds, No Wheeze, Rales, Rhonchi Neuro: Alert and responsive, No focal deficits noted Abdomen: Soft, Non-Tender Skin: No rashes noted on visualized skin Musculoskeletal: No Chest Wall Tenderness Extremities: No Clubbing, No Cyanosis, No Edema, Normal Pulses Results 11/30/18 05:37 11/30/18 05:37 Lab Results 11/29/18 11/29/18 11/29/18 17:38 17:38 23:56 WBC 9.0 Hgb 14.3 Hct 41.8 Plt Count 262 Sodium 136 Potassium 4.0 Chloride 105 Carbon Dioxide 24 BUN 18 Creatinine 0.90 Glucose 101 Calcium 9.6 Total Bilirubin 0.6 AST 15 ALT 16 Alkaline Phosphatase 78 Troponin I < 0.03 < 0.03 11/30/18 11/30/18 11/30/18 05:37 05:37 05:37 WBC 8.1 Hgb 14.1 Hct 41.5 Plt Count 245 Sodium 140 Potassium 3.7 Chloride 109 H Carbon Dioxide 25 BUN 15 Creatinine 0.81 Glucose 87 Calcium 9.4 Total Bilirubin AST ALT Alkaline Phosphatase Troponin I < 0.03 Short CBC 11/30/18 11/29/18 Range/Units 05:37 17:38 WBC 8.1 9.0 (4.3-11.1) K/mcL Hgb 14.1 14.3 (12.9-16.9) g/dL Hct 41.5 41.8 (37.5-50.1) % Plt Count 245 262 (140-400) K/mcL Neutrophils # 6.3 (1.6-8.9) K/mcL BMP 11/30/18 11/29/18 Range/Units 05:37 17:38 Sodium 140 136 (136-145) mEq/L Potassium 3.7 4.0 (3.5-5.1) mEq/L Chloride 109 H 105 (98-107) mEq/L Carbon Dioxide 25 24 (23-29) mEq/L BUN 15 18 (6-20) mg/dL Creatinine 0.81 0.90 (0.70-1.30) mg/dL Glucose 87 101 (70-105) mg/dL Calcium 9.4 9.6 (8.6-10.3) mg/dL Cardiac Enzymes 11/30/18 11/29/18 11/29/18 Range/Units 05:37 23:56 17:38 Troponin I < 0.03 < 0.03 < 0.03 (< 0.04) ng/mL Liver Function 11/29/18 Range/Units 17:38 Total Bilirubin 0.6 (0.3-1.0) mg/dL AST 15 (13-39) Units/L ALT 16 (7-52) Units/L Alkaline Phosphatase 78 (34-104) Units/L Albumin 4.2 (3.5-5.7) g/dL Impressions Chest X-Ray 11/29/18 17:31 IMPRESSION: No acute findings D/ / Angelita Spear MD / Angelita Spear MD Interpreting Provider: Angelita Spear MD Active Medications Heparin Sodium (Porcine) (Heparin) 5,000 unit SQ Q12HCO LISA Stop: 06/01/19 06:01 Last Admin: 11/30/18 06:10 Dose: 5,000 unit Naloxone HCl (Narcan) 0.4 mg IVP Q2MIN PRN PRN Reason: SEE COMMENTS Stop: 05/31/19 23:18 Ondansetron HCl (Zofran) 4 mg IVP Q8HR PRN; Protocol PRN Reason: Nausea And Vomiting Stop: 05/31/19 23:35 - Imaging and Cardiology Stress Test: report reviewed Echo: report reviewed Cardiac cath: report reviewed - EKG Interpretation EKG results cardiology: personally reviewed (Leads reversed), other (12 hr tele AVG HR 69, SR) Consult Discharge Plan - Plan Referrals: Katarzyna Stern MD [Primary Care Provider] - <Franklyn Goodman - Last Filed: 11/30/18 10:31> Date of Encounter: 11/30/18 - Attending Attestation I have personally performed a face to face evaluation on this patient. I have reviewed and agree with the care plan. History and Exam by me shows: Presents with atypical chest pain , NERI negative. Will treat medically, can fu with experiential therapist as outpt. Assessment and Plan Discussion w patient/family: The assessment and plan as outlined above was discussed with the patient and/or family members who expressed understanding and agreement. All questions were answered. Thank you for involving us in the care of your patient. Please call with any questions. History of Present Illness History of present illness: Mr. Rivas is a 53 year old male All Systems Review: The remainder of the systems were reviewed and are negative Physical Examination Vital Signs, Last 4 Hours Temp Pulse Resp BP Pulse Ox 11/30/18 07:53 98.2 F 68 17 115/74 93 Results 11/30/18 05:37 11/30/18 05:37 Lab Results 11/29/18 11/29/18 11/29/18 17:38 17:38 23:56 WBC 9.0 Hgb 14.3 Hct 41.8 Plt Count 262 Sodium 136 Potassium 4.0 Chloride 105 Carbon Dioxide 24 BUN 18 Creatinine 0.90 Glucose 101 Calcium 9.6 Total Bilirubin 0.6 AST 15 ALT 16 Alkaline Phosphatase 78 Troponin I < 0.03 < 0.03 11/30/18 11/30/18 11/30/18 05:37 05:37 05:37 WBC 8.1 Hgb 14.1 Hct 41.5 Plt Count 245 Sodium 140 Potassium 3.7 Chloride 109 H Carbon Dioxide 25 BUN 15 Creatinine 0.81 Glucose 87 Calcium 9.4 Total Bilirubin AST ALT Alkaline Phosphatase Troponin I < 0.03
[2018-11-30] MEDS ORDERED: Metoprolol XL (24 HR) Succ 25 MG TAB.ER.24H PO SCH (10:00)
[2018-11-30] MEDS ORDERED: Isosorbide MONOnitrate (24 HR) 30 MG TAB.ER.24H PO SCH (10:00)
[2018-11-30] MEDS ORDERED: Aspirin 81 MG TAB.CHEW PO SCH (10:00)
--- NOTE | 2018-11-30 11:31 | Discharge Summary ---
<Fernando Guerrero Malik - Last Filed: 11/30/18 20:46> - NOTES TO OUTPATIENT PROVIDER Notes to Outpatient Provider: Mr. Rivas was admitted on 11/29/18 for chest pain of 2-3 days duration. CXR was negative. EKG showed no ischemic changes. Serial troponins were negative. Cardiology evaluated patient and recommended repeating echocardiogram, however this was not completed prior to discharge. 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 At the discretion of cardiology, the patient's home Metoprolol was decreased to 25mg and he was started on Imdur 30mg daily. Orders not resulted at time of discharge: Pending orders 11/30/18 09:53 EKG [ECG 12 lead ECG] [ECG] Stat EV echocardiogram Routine Date of Encounter: 11/30/18 Time of Encounter: 09:15 - Discharge Diagnosis (1) Chest pain Priority: Primary Status: Acute Assessment and Plan: presented with chest pain 2-3 duration CXR negative EKG with no ischemic changes Serial troponins negative Cardiology ultimately recommended outpatient echo Decreased home Metoprolol to 25mg Started Imdur 30mg Continue ASA and statin Qualifiers: Chest pain type: unspecified Qualified Code(s): R07.9 - Chest pain, unspecified (2) History of heart bypass surgery Priority: Secondary Status: Chronic (3) Nausea Priority: Secondary Status: Acute Assessment and Plan: resolved at time of discharge (4) Current nicotine use Priority: Secondary Status: Chronic Assessment and Plan: chews tobacco Educated pt on importance of cessation and treatment alternatives (5) CAD (coronary artery disease) Priority: Secondary Status: Chronic Assessment and Plan: Plan as above Qualifiers: Coronary Disease-Associated Artery/Lesion type: unspecified vessel or lesion type [place] vs. transplanted heart: [place] heart Associated angina: angina presence unspecified Qualified Code(s): I25.10 - Atherosclerotic heart disease of [place] coronary artery without angina pectoris Hospital course: Mr. Rivas is a 53M with PMH of CAD with previous CABG, hypothyroidism, GERD, and insomnia. He was admitted on 11/29/18 for chest pain of 2-3 days duration. CXR from the ED was negative. EKG showed no ischemic changes. Serial troponins were negative. Cardiology evaluated patient and recommended repeating echocardiogram. However despite the order being placed at approximately 09:30, it remained uncollected by 1600. Cardiology advised that patient could instead follow up with his sheet metal foreman for an outpatient echo. During admission the pt was complaining of some dizziness. At the discretion of cardiology, the patient's home Metoprolol was decreased to 25mg and he was started on Imdur 30mg daily. Pt agreed to treatment plan. Advised pt to return to the ED for any further issues. Discharge discussed with: patient, nurse, career development consultant - Time Spent with Patient Total time spent providing and/or coordinating discharge services: - Discharge Medications Prescriptions: RX: Isosorbide MONOnitrate (24 HR) [Imdur] 30 mg PO DAILY 30 Days #30 tab.er.24h RX: Metoprolol XL (24 HR) Succ [Toprol Xl] 25 mg PO DAILY 30 Days #30 tab.er.24h Home Medications: RX: Aspirin 81 mg PO DAILY 04/04/16 [History] RX: Atorvastatin Calcium [Lipitor] 80 mg PO HS 04/04/16 [History] RX: Cholecalciferol (D-3) [Vitamin D] 5,000 unit PO DAILY 04/04/16 [History] RX: Levothyroxine Sodium [Tirosint] 175 mcg PO DAILY 04/04/16 [History] RX: Multivitamin [Multivitamins] 1 each PO DAILY 04/04/16 [History] RX: Vitamin E Acetate [Vitamin E] 2,000 units PO DAILY 04/04/16 [History] RX: Flaxseed Oil [[place]-3 Flaxseed Oil] 1,000 mg PO DAILY 09/12/17 [History] RX: Fluticasone Propionate Nasal [Flonase] 1 spray NS BID 09/12/17 [History] RX: Ubidecarenone [Co Q-10] 10 mg PO DAILY 09/12/17 [History] RX: Isosorbide MONOnitrate (24 HR) [Imdur] 30 mg PO DAILY 30 Days #30 tab.er.24h 11/30/18 [Rx] RX: [place]/Om-3/Dha/Epa/Phospho/Ast [[place]rill Oil 1,000 mg Softgel] 1 cap PO DAILY 11/30/18 [History] RX: Metoprolol XL (24 HR) Succ [Toprol Xl] 25 mg PO DAILY 30 Days #30 tab.er.24h 11/30/18 [Rx] RX: Omeprazole [PriLOSEC] 40 mg PO BID 11/30/18 [History] Allergies/Adverse Reactions: Allergy/AdvReac Type Severity Reaction Status Date / Time ibuprofen [From Motrin] Allergy Swelling Verified 11/30/18 15:41 of Lip/Tongue/Throat Date of admission: 11/29/18 21:58 Primary care physician: Katarzyna Stern Consults: 11/29/18 23:44 Consult to Cardiology [CONS] Routine Comment: Consulting Provider: Cardiology [place] Reason for Consult: Chest pain, with significant history of 5-bypass CABG 5 years ago. Recent work up performed in February of last year for chest pain. Call Completed: No Discharging clinician: Fernando Guerrero - Constitutional Vitals: Temp Pulse Resp BP Pulse Ox 98.2 F 68 17 115/74 93 11/30/18 07:53 11/30/18 07:53 11/30/18 07:53 11/30/18 07:53 11/30/18 07:53 General appearance: Present: cooperative, A&O X 3, pleasant, no acute distress, answers questions appropriately Exam: Constitutional: Well-developed, well-nourished male in no acute distress Head: Normocephalic, atraumatic Eyes: PERRL, EOMI, conjunctiva pink, sclera anicteric Neck: Supple, trachea midline, no lymphadenopathy Lungs: Clear to auscultation bilaterally. Nonlabored breathing. No wheezes, rales, or rhonchi noted. Cardiac: RRR. +S1 +S2 No murmurs, clicks, or rubs noted. GI: Abdomen soft, nontender, nondistended. Normoactive bowel sounds Extremities: Warm, radial pulses palpable and symmetrical. No cyanosis, pedal edema, or calf tenderness. Neuro: Alert and oriented 3. No focal deficits. Normal speech. Skin: Warm, dry, and intact. - Patient Status Disposition: Home, Self-Care Condition: Fair Functional capacity at discharge: independent ambulation Overall status at discharge: patient is back to baseline - Discharge Instructions Instructions: Metoprolol (By mouth), Isosorbide Mononitrate (By mouth) Follow Up With: Katarzyna Stern MD [Primary Care Provider] - - Diet and Activity Activity: increase activity as tolerated, resume usual activities as tolerated Diet: low fat, low cholesterol, low salt diet <AdeleneerajEstebanhoracio M - Last Filed: 11/30/18 21:41> Orders not resulted at time of discharge: Pending orders 11/30/18 09:53 EKG [ECG 12 lead ECG] [ECG] Stat Date of Encounter: 11/30/18 - Discharge Diagnosis (1) Chest pain Status: Acute Qualifiers: Chest pain type: unspecified Qualified Code(s): R07.9 - Chest pain, unspecified (2) History of heart bypass surgery Status: Chronic (3) Nausea Status: Acute (4) Current nicotine use Status: Chronic (5) CAD (coronary artery disease) Status: Chronic Qualifiers: Coronary Disease-Associated Artery/Lesion type: unspecified vessel or lesion type [place] vs. transplanted heart: [place] heart Associated angina: angina presence unspecified Qualified Code(s): I25.10 - Atherosclerotic heart disease of [place] coronary artery without angina pectoris Hospital course: Mr. Rivas is a 53 year old male - Time Spent with Patient Total time spent providing and/or coordinating discharge services: Greater than 30 minutes Date of admission: 11/29/18 21:58 Primary care physician: Katarzyna Stern Consults: 11/29/18 23:44 Consult to Cardiology [CONS] Routine Comment: Consulting Provider: Marilyn Boyer Reason for Consult: Chest pain, with significant history of 5-bypass CABG 5 years ago. Recent work up performed in February of last year for chest pain. Call Completed: No - Constitutional Vitals: Temp Pulse Resp BP Pulse Ox 98.2 F 73 14 114/64 97 11/30/18 15:23 11/30/18 15:23 11/30/18 15:23 11/30/18 15:23 11/30/18 15:23 - Attending Attestation I examined this patient and my medical decision-making was reviewed with the Resident Physician. I agree with the documented discharge as above. GEN: NAD CVS: RRR. S1, S2, No m/r/g RESP: CTAB ABD: Soft, NT, ND, +BS EXT: No edema. 2+ DP. No rashes NEURO: Nonfocal
[2018-11-30 15:26] VITALS: BP 114/64
[2018-11-30] MEDS ORDERED: NON-FORMULARY MEDICATION 1 EACH EACH (Atorvastatin Calcium [Lipitor] 80 MG) PO SCH (21:00)
[2018-11-30] MEDS ORDERED: Fluticasone Propionate Nasal 50 MCG/SPRAY BOTTLE NS SCH (21:00)
[2018-11-30] MEDS ORDERED: Metoprolol XL (24 HR) Succ 50 MG TAB.ER.24H PO SCH (21:00)
[2018-12-01] MEDS ORDERED: (Krill/Om-3/Dha/Epa/Phospho/Ast [Krill Oil 1,000 Mg S) PO SCH (09:00)
[2018-12-01] MEDS ORDERED: Aspirin 81 MG TAB.CHEW PO SCH (09:00)
[2018-12-01] MEDS ORDERED: (Ubidecarenone [Co Q-10] 10 MG) PO SCH (09:00)
[2018-12-01] MEDS ORDERED: (Flaxseed Oil [Omega-3 Flaxseed Oil] 1,000 MG) PO SCH (09:00)
[2018-12-01] MEDS ORDERED: Cholecalciferol (D-3) 1,000 UNIT TABLET PO SCH (09:00)
[2018-12-01] MEDS ORDERED: Multivit/Ca/Min/Fe/FA 1 TAB TABLET PO SCH (09:00)
--- NOTE | 2018-12-01 12:41 | Electrocardiograph Report ---
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
--- NOTE | 2018-12-03 17:32 | Electrocardiograph Report ---
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
== END 2018-11-30 18:39 | disposition home or self-care (01) ==
LOC: 2NENU 17:21 → EMEROOARM 17:21 → SUATTDRO 21:58 → 2NENU 22:17
PROVIDERS: ADMIT Internal Medicine; ATTEND Internal Medicine